=== PATIENT | male | born 1990 | race African-American/Black ===

== ENCOUNTER 2017-04-22 | Emergency (ER) | payer OTHER ==
[~2017-04-22] VITALS: Ht 182.9 cm; Wt 68.0 kg
[2017-04-22 00:09] VITALS: BP 129/79
--- NOTE | 2017-04-22 00:41 | NUR ---
Patient discharged to home in stable condition. Written and verbal after care instructions given. Patient verbalizes understanding of instruction. VSS upon discharge. Pt ambulated with steady gait out of ER.
== END 2017-04-22 00:43 | disposition home or self-care (01) ==
LOC: ER 00:05
DX: Z00.8 Encounter for other general examination (principal)
CPT/HCPCS: 99281; A4606; Z7610; Z7502